=== PATIENT | female | born 1995 | race Caucasian/White ===

== ENCOUNTER 2017-02-28 13:41 | Emergency (ER) | payer MEDICAID ==
[2017-02-28 16:11] LABS: Bacteria,Urine 1+ /HPF (Negative); Bilirubin,Urine NEG (Negative); Blood,Urine MOD (Negative); Ketones,Urine NEG (Negative); Leukocyte Esterase,Urine TR (Negative); Mucus,Urine FEW /HPF; Nitrite,Urine NEG (Negative); Protein,Urine <15 mg/dL mg/dL (Negative); Urobilinogen,Urine < 2.0 mg/dL (<2.0)
--- NOTE | 2017-02-28 16:42 | Emergency Department Report ---
ED Female HPI - General Chief complaint: Urogenital-Female Stated complaint: PELVIC AND FLANK PAIN Time Seen by Provider: 02/28/17 15:49 Source: patient, EMS Mode of arrival: Ambulatory Limitations: No Limitations - History of Present Illness Initial comments: Patient here report in pain to he back area on and off and it started again this morning but she is not having any pain now it was reported in triagepatient was having pelvic pain a 10 out of 10 but patient said she is having cramping in and she has not had having any at present. She also reports back pain and denies any flank pain. He reports that she's been having in pelvic pain that she had Mirena put in 2 years ago and she goes to my [facility] and have been trying to schedule an appointment with the person that The Mirena in but has been unsuccessful. Patient here progressed then ultrasound to check. He denies any vaginal bleeding or discharge. Denies any nausea or vomiting or fever or chills. MD Complaint: pelvic pain, other (Mirena check) Onset/Timin -: year(s) Location: other (lower back pain) Severity: severe Severity scale (0 -10): 7 Quality: aching Consistency: intermittent (lower back pain), now resolved (pelvic pain) Improves with: none Worsens with: none Are you Now?: No Last Menstrual Period: 02/21/17 EDC: 11/28/17 Associated Symptoms: denies: vaginal discharge, vaginal bleeding, abdominal pain , nausea/vomiting, fever/chills, headaches, loss of appetite, dysuria, hematuria , rash, seizure, shortness of breath, syncope, weakness - Related Data Sexually active: Yes Previous Rx's Medication Instructions Recorded Last Taken Type Amoxicillin [Amoxicillin TAB] 875 mg PO BID #14 tablet 08/31/16 Unknown Rx Fluticasone [Flonase] 1 spray NS QDAY #1 bottle 08/31/16 Unknown Rx Ibuprofen [Motrin] 600 mg PO Q8H PRN #15 tablet 08/31/16 Unknown Rx predniSONE [Deltasone] 50 mg PO QDAY #5 tab 08/31/16 Unknown Rx Nitrofurantoin [place]/M-Cryst 100 mg PO Q12HR #14 capsule 02/28/17 Unknown Rx [Macrobid CAP] Allergies Allergy/AdvReac Type Severity Reaction Status Date / Time No Known Allergies Allergy Unverified 10/24/14 02:38 ED Review of Systems ROS: Stated complaint: PELVIC AND FLANK PAIN Other details as noted in HPI Comment: All other systems reviewed and negative Constitutional: denies: chills, fever ENT: denies: throat pain Respiratory: no symptoms reported Cardiovascular: denies: chest pain, palpitations, edema, syncope Gastrointestinal: denies: abdominal pain, nausea, vomiting, diarrhea, constipation Genitourinary: other (requested and Mirena check). denies: urgency, dysuria, frequency, hematuria, discharge, abnormal menses, dyspareunia Musculoskeletal: back pain. denies: arthralgia, myalgia Skin: denies: rash Neurological: denies: headache, weakness, numbness, paresthesias, confusion, abnormal gait, vertigo ED Past Medical Hx - Past Medical History Previous Medical History?: Yes Hx Hypertension: No Hx Congestive Heart Failure: No Hx Diabetes: No Hx Deep Vein Thrombosis: No Hx Renal Disease: No Hx Sickle Cell Disease: No Hx Seizures: No Hx Asthma: No Hx COPD: No Hx HIV: No Additional medical history: Mirena - Surgical History Past Surgical History?: Yes Additional Surgical History: mirena inserted - Family History Family history: no significant - Social History Smoking Status: Current Every Day Smoker Substance Use Type: Non Opiate Pain - Medications Home Medications: Home Medications Medication Instructions Recorded Confirmed Last Taken Type Amoxicillin [Amoxicillin TAB] 875 mg PO BID #14 tablet 08/31/16 Unknown Rx Fluticasone [Flonase] 1 spray NS QDAY #1 bottle 08/31/16 Unknown Rx Ibuprofen [Motrin] 600 mg PO Q8H PRN #15 tablet 08/31/16 Unknown Rx predniSONE [Deltasone] 50 mg PO QDAY #5 tab 08/31/16 Unknown Rx Nitrofurantoin [place]/M-Cryst 100 mg PO Q12HR #14 capsule 02/28/17 Unknown Rx [Macrobid CAP] ED Physical Exam - General Limitations: No Limitations General appearance: alert, in no apparent distress - Head Head exam: Present: atraumatic, normocephalic, normal inspection - Eye Eye exam: Present: normal appearance, PERRL, EOMI. Absent: scleral icterus, conjunctival injection Pupils: Present: normal accommodation - ENT ENT exam: Present: normal exam, normal orophraynx, mucous membranes moist - Neck Neck exam: Present: normal inspection, full ROM. Absent: tenderness, meningismus, lymphadenopathy - Respiratory Respiratory exam: Present: normal lung sounds bilaterally. Absent: respiratory distress, chest wall tenderness - Cardiovascular Cardiovascular Exam: Present: regular rate, normal rhythm, normal heart sounds - GI/Abdominal GI/Abdominal exam: Present: soft, normal bowel sounds. Absent: distended, tenderness, guarding, rebound, rigid - Extremities Exam Extremities exam: Present: normal inspection, full ROM, normal capillary refill. Absent: tenderness, pedal edema, joint swelling, calf tenderness - Back Exam Back exam: Present: normal inspection, full ROM. Absent: tenderness, CVA tenderness (R), CVA tenderness (L), muscle spasm, paraspinal tenderness, vertebral tenderness, rash noted - Neurological Exam Neurological exam: Present: alert, oriented X3, normal gait - Psychiatric Psychiatric exam: Present: normal affect, normal mood - Skin Skin exam: Present: warm, dry, intact, normal color. Absent: rash ED Course Vital Signs 02/28/17 02/28/17 14:06 17:18 Temperature 97.8 F Pulse Rate 68 Respiratory 20 16 Rate Blood Pressure 118/68 O2 Sat by Pulse 100 Oximetry - Reevaluation(s) Reevaluation #1: 02/28/17 17:43 Patient had uneventful ED stay. ED Medical Decision Making - Lab Data Lab Results 02/28/17 Range/Units 15:41 Urine Color Yellow (Yellow) Urine Turbidity Clear (Clear) Urine pH 5.0 (5.0-7.0) Ur Specific [place] 1.023 (1.003-1.030) Urine Protein <15 mg/dl (Negative) mg/dL Urine Glucose (UA) Neg (Negative) mg/dL Urine Ketones Neg (Negative) mg/dL Urine Blood Mod (Negative) Urine Nitrite Neg (Negative) Urine Bilirubin Neg (Negative) Urine Urobilinogen < 2.0 (<2.0) mg/dL Ur Leukocyte Esterase Tr (Negative) Urine WBC (Auto) 5.0 (0.0-6.0) /HPF Urine RBC (Auto) 4.0 (0.0-6.0) /HPF U Epithel Cells (Auto) 10.0 (0-13.0) /HPF Urine Bacteria (Auto) 1+ (Negative) /HPF Hyaline Casts 1 /LPF Urine Mucus Few /HPF Urine HCG, Qual Negative (Negative) Urine culture pending - Medical Decision Making ED course: Discussed with patient that she needs to follow-up at her [facility] for Mirena check. Discussed with her that we can do a pelvic ultrasound and this will tell if her Mirena is displaced. She had initially agreed an ultrasound was ordered. Then came back and said that she does not want the ultrasound she has to go. I discussed with her that she needs to call her [facility] in the morning to schedule an appointment. So discussed with her that she has a urinary tract infection and will be covered with antibiotics. Pt with normal abdominal exam without any vaginal bleeding, she is not having any pelvic pain off and examination. Said pelvic pain comes and goes and it started this morning again but now she is not having any. I discussed with her treatment plan and diagnosis and she is in agreement. Pt also denies any history of kidney stones and I discussed with her that she is not . Discharge home with prescription for Macrobid. Discharged from ER in stable condition. Critical care attestation.: If time is entered above; I have spent that time in minutes in the direct care of this critically ill patient, excluding procedure time. ED Disposition Clinical Impression: Acute cystitis with hematuria, Treatment refusal Disposition: DISCHARGED TO HOME OR SELFCARE Is pt being admited?: No Does the pt Need Aspirin: No Condition: Stable Instructions: Urinary Tract Infection in Women (ED) Additional Instructions: Call [facility] office to schedule appointment tomorrow You refused your ultrasound in ED so, schedule appoint ment with [facility] Take medication as prescribed Prescriptions: Nitrofurantoin [place]/M-Cryst [Macrobid CAP] 100 mg PO Q12HR #14 capsule Referrals: Your, [facility] [Other] - 03/01/17 Forms: Work/School Release Form(ED)
[2017-02-28 18:01] VITALS: BP 123/76
== END 2017-02-28 18:01 | disposition home or self-care (01) ==
LOC: ED 13:41
DX: N30.01 Acute cystitis with hematuria (principal); F17.200 Nicotine dependence, unspecified, uncomplicated
CPT/HCPCS: 81001; 81025; 87086; 99283

== ENCOUNTER 2018-02-12 12:54 | Emergency (ER) | payer MEDICAID ==
[2018-02-12 13:48] VITALS: BP 120/55
[2018-02-12 14:51] LABS: Bacteria,Urine 1+ /HPF (Negative); Bilirubin,Urine NEG (Negative); Blood,Urine NEG (Negative); Color,Urine Yellow (Yellow); Mucus,Urine FEW /HPF; Protein,Urine <15 mg/dL mg/dL (Negative); Urobilinogen,Urine < 2.0 mg/dL (<2.0)
[2018-02-12 15:29] LABS: Basophils % (Auto) 0.2 % (0.0-1.8); Eosinophils # (Auto) 0.2 K/mm3 (0.0-0.4); Eosinophils % (Auto) 1.6 % (0.0-4.3); Hematocrit 37.1 % (30.3-42.9); Hemoglobin 12.1 gm/dl (10.1-14.3); Lymphocytes # (Auto) 3.1 K/mm3 (1.2-5.4); Lymphocytes % (Auto) 23.7 % (13.4-35.0); Mean Corpuscular HGB Conc 33 % (30-34); Mean Corpuscular Hemoglobin 28 pg (28-32); Mean Corpuscular Volume 87 fl (79-97); Monocytes # (Auto) 0.8 K/mm3 (0.0-0.8); Monocytes % (Auto) 6.4 % (0.0-7.3); Platelet Count 267 K/mm3 (140-440); Red Blood Count 4.28 M/mm3 (3.65-5.03); Red Cell Distribution Width 13.4 % (13.2-15.2)
[2018-02-12 15:41] LABS: Calcium 9.2 mg/dL (8.4-10.2); Hemolysis Index 1
[2018-02-12 16:13] LABS: BUN/Creatinine Ratio 15; Blood Urea Nitrogen 6 mg/dL (7-17)
== END 2018-02-12 15:55 | disposition left against medical advice (07) ==
LOC: ED 12:54
DX: R06.02 Shortness of breath (principal); Z53.21 Procedure and treatment not carried out due to patient leaving prior to being seen by health care provider
CPT/HCPCS: 36415; 80048; 81001; 85025; 85379; 93970

== ENCOUNTER 2018-04-04 16:25 | Emergency (ER) | payer SELFPAY ==
[2018-04-04 16:37] VITALS: BP 139/63
[2018-04-04 17:23] LABS: Bilirubin,Urine NEG (Negative); Blood,Urine NEG (Negative); Color,Urine Yellow (Yellow); Mucus,Urine FEW /HPF; Protein,Urine <15 mg/dL mg/dL (Negative)
--- NOTE | 2018-04-04 20:56 | Emergency Department Report ---
HPI - General Chief Complaint: Abdominal Pain Time Seen by Provider: 04/04/18 20:36 - HPI HPI: Room 3 The patient is a 22-year-old female presenting with chief complaint of abdominal pain. The patient states this morning she began having sharp pressure -like pain in the suprapubic region and then began to radiate to the right upper quadrant. The patient states she had dysuria since this morning but denies hematuria. The patient states she is 15 weeks gestational age. Patient states she has not had vaginal bleeding. The patient states she has an appetite and has not eaten because of the pain Location: Abdomen, see above Duration:, Constant since this morning Quality: Sharp/pressure-like Severity: Moderate Modifying factors: [see above] Context: [see above] Mode of transportation: [not driving] ED Past Medical Hx - Surgical History Additional Surgical History: mirena inserted - Family History Family history: no significant - Social History Smoking Status: Never Smoker Substance Use Type: None (denies illicit drug use) - Medications Home Medications: Home Medications Medication Instructions Recorded Confirmed Last Taken Type Amoxicillin [Amoxicillin TAB] 875 mg PO BID #14 tablet 08/31/16 Unknown Rx Fluticasone [Flonase] 1 spray NS QDAY #1 bottle 08/31/16 Unknown Rx Ibuprofen [Motrin] 600 mg PO Q8H PRN #15 tablet 08/31/16 Unknown Rx predniSONE [Deltasone] 50 mg PO QDAY #5 tab 08/31/16 Unknown Rx Nitrofurantoin [place]/M-Cryst 100 mg PO Q12HR #14 capsule 02/28/17 Unknown Rx [Macrobid CAP] Nitrofurantoin Monohyd/M-Cryst 100 mg PO BID #14 capsule 04/05/18 Unknown Rx [Macrobid 100 mg Capsule] ED Review of Systems ROS: Stated complaint: STOMOACH PRESSURE Other details as noted in HPI Constitutional: denies: fever Eyes: denies: eye pain ENT: denies: throat pain Respiratory: denies: other (no pleurisy) Cardiovascular: denies: chest pain Endocrine: unexplained weight loss (15 pounds in one month) Gastrointestinal: abdominal pain, nausea, vomiting Genitourinary: dysuria Musculoskeletal: denies: back pain Neurological: denies: headache Physical Exam - Physical Exam Vital Signs: Vital Signs 04/04/18 04/04/18 16:34 20:16 Temperature 98 F Pulse Rate 102 H 96 H Respiratory 18 Rate Blood Pressure 139/63 O2 Sat by Pulse 98 Oximetry Physical Exam: GENERAL: The patient is well-developed well-nourished female lying on stretcher not appearing to be in acute distress. [] HEENT: Normocephalic. Atraumatic. Extraocular motions are intact. Patient has moist mucous membranes. NECK: Supple. Trachea midline CHEST/LUNGS: Clear to auscultation. There is no respiratory distress noted. HEART/CARDIOVASCULAR: Regular. There is no tachycardia. There is no gallop rub or murmur. ABDOMEN: Abdomen is soft, with diffuse discomfort to palpation. Patient has normal bowel sounds. There is no abdominal distention. SKIN: There is no rash. There is no diaphoresis. NEURO: The patient is awake, alert, and oriented. The patient is cooperative. The patient has normal speech MUSCULOSKELETAL: There is no evidence of acute injury. ED Course Vital Signs 04/04/18 04/04/18 16:34 20:16 Temperature 98 F Pulse Rate 102 H 96 H Respiratory 18 Rate Blood Pressure 139/63 O2 Sat by Pulse 98 Oximetry - Consultations Consultation #1: 04/04/18 22:25 Surgery paged 04/04/18 22:[address] Delgado. Will call back with results/follow-up 04/05/18 00:55 Surgery Paged 04/05/18 01:08 Dr. Delgado updated on negative MRI results ED Medical Decision Making - Lab Data Result diagrams: 04/04/18 20:54 04/04/18 19:29 Laboratory Tests 04/04/18 04/04/18 04/04/18 17:00 19:29 19:29 WBC RBC Hgb Hct MCV MCH MCHC RDW Plt Count Lymph % (Auto) [place] % (Auto) Eos % (Auto) Baso % (Auto) Lymph # [place] # Eos # Baso # Seg Neutrophils % Seg Neutrophils # Sodium 135 L Potassium 4.3 Chloride 97.4 L Carbon Dioxide 21 L Anion Gap 21 BUN 5 L Creatinine 0.4 L Estimated GFR > 60 BUN/Creatinine Ratio 13 Glucose 90 Calcium 9.3 Total Bilirubin 0.40 AST 12 ALT 11 Alkaline Phosphatase 79 Total Protein 6.9 Albumin 3.8 L Albumin/Globulin Ratio 1.2 Lipase 15 HCG, Quant 31706 H Urine Color Yellow Urine Turbidity Clear Urine pH 7.0 Ur Specific [place] 1.025 Urine Protein <15 mg/dl Urine Glucose (UA) Neg Urine Ketones Neg Urine Blood Neg Urine Nitrite Neg Urine Bilirubin Neg Urine Urobilinogen 4.0 Ur Leukocyte Esterase Tr Urine WBC (Auto) 2.0 Urine RBC (Auto) 1.0 U Epithel Cells (Auto) 6.0 Urine Mucus Few 04/04/18 20:54 WBC 15.9 H RBC 4.47 Hgb 12.7 Hct 38.7 MCV 87 MCH 28 MCHC 33 RDW 13.1 L Plt Count 241 Lymph % (Auto) 13.3 L [place] % (Auto) 4.1 Eos % (Auto) 0.5 Baso % (Auto) 0.1 Lymph # 2.1 [place] # 0.6 Eos # 0.1 Baso # 0.0 Seg Neutrophils % 82.0 H Seg Neutrophils # 13.0 H Sodium Potassium Chloride Carbon Dioxide Anion Gap BUN Creatinine Estimated GFR BUN/Creatinine Ratio Glucose Calcium Total Bilirubin AST ALT Alkaline Phosphatase Total Protein Albumin Albumin/Globulin Ratio Lipase HCG, Quant Urine Color Urine Turbidity Urine pH Ur Specific [place] Urine Protein Urine Glucose (UA) Urine Ketones Urine Blood Urine Nitrite Urine Bilirubin Urine Urobilinogen Ur Leukocyte Esterase Urine WBC (Auto) Urine RBC (Auto) U Epithel Cells (Auto) Urine Mucus - Radiology Data Radiology results: report reviewed (right upper quadrant ultrasound, pelvic ultrasound, MRI abdomen, MRI pelvis), image reviewed (right upper Quadrant ultrasound, pelvic ultrasound, MRI abdomen, MRI of pelvis) [address] [address] Ultrasound Report Signed Patient: SANDY ARNOLD MR#: [id number] : 1995 Acct:[id number] Age/Sex: 22 / F ADM Date: 04/04/18 Loc: ED Attending Dr: Ordering Physician: BELL COLEY MD Date of Service: 04/04/18 Procedure(s): US abdomen limited Accession Number(s): [id number] cc: BELL COLEY MD FINAL REPORT PROCEDURE: US ABDOMEN LIMITED TECHNIQUE: Real-time sonography was performed of the right upper quadrant with image documentation. CPT 49194 HISTORY: right upper quadrant pain COMPARISON: No prior studies are available for comparison. FINDINGS: Limited study due to patient's body habitus. Gallbladder is well distended with normal outlines are normal wall thickness without any pericholecystic collections. Mild degree sludge is identified in the dependent portion of gallbladder. Common duct is 5 millimeters in caliber. Right kidney demonstrates normal size and echotexture without calculi or hydronephrosis. It measures 10 x 5 x 6 centimeters. Pancreas is not well visualized due to bowel gas.. IMPRESSION: There is evidence of mild degree sludge in the gallbladder. There is no evidence of cholecystitis. Otherwise unremarkable study. Transcribed By: [facility] [place] Dictated By: THERESE CHA Electronically Authenticated By: THERESE CHA Signed Date/Time: 2143 DD/ 43 TD/TT: 04/04/182143 [facility] [address] [place] [address] Ultrasound Report Signed Patient: SANDY ARNOLD MR#: [id number] : 1995 Acct:[id number] Age/Sex: 22 / F ADM Date: 04/04/18 Loc: ED Attending Dr: Ordering Physician: BELL COLEY MD Date of Service: 04/04/18 Procedure(s): US OB >= 14 wk fetus add gest Accession Number(s): [id number] cc: BELL COLEY MD FINAL REPORT PROCEDURE: US OB gt; = 14 WK FETUS ADD GEST TECHNIQUE: Real-time transabdominal sonography of the uterus, placenta, amniotic fluid, adnexa, and fetus was performed with image documentation. Measurements were obtained to determine age/size. M-mode Doppler was used to document heartbeat. CPT 30897 HISTORY: ABD PAIN AND PREG COMPARISON: No prior studies are available for comparison. FINDINGS: ADDITIONAL GESTATION: None. GENERAL: IUP: Single living intrauterine . Position: Breech Placental position: Anterior with grade 0 maturity, without previa. Amniotic fluid volume: Normal. MATERNAL: Uterus: Within normal limits. Cervical length: 3.1 cm. Internal Os: Closed. FETUS: Heart rate and rhythm: 163 beats per minute, regular. MEASUREMENTS: BPD: 3.25 centimeters corresponding to 16 weeks and 1 day HC: 12.48 centimeters corresponding to 16 weeks and 2 days AC: 10.87 centimeters corresponding to 16 weeks and 5 days FL: 1.97 centimeters corresponding to 15 weeks and 6 days Mean Gestational Age (composite criteria): 16 weeks and 2 days Ratio biometry: Normal. Estimated Weight: 152 grams. Estimated Due Date : 09/17/2018 Incidental note is made of a tubular structure in the right lower quadrant measuring about 13 millimeters in diameter suspicious for a dilated appendix. IMPRESSION: Single intrauterine gestation at 16 weeks and 2 days. Estimated due date: 09/17/2018. Incidental note is made of a tubular structure in the right lower quadrant. Dilated appendix suspicious for appendicitis cannot be excluded. Clinical correlation is recommended. Transcribed By: [facility] Dictated By: THERESE CHA Electronically Authenticated By: THERESE CHA Signed Date/Time: 2212 DD/ 12 TD/TT: 04/04/182212 [facility] [address] [place] [address] Magnetic Resonance Report Signed Patient: SANDY ARNOLD MR#: [id number] : 1995 Acct:[id number] Age/Sex: 22 / F ADM Date: 04/04/18 Loc: ED Attending Dr: Ordering Physician: BELL COLEY MD Date of Service: 04/04 Procedure(s): MR pelvis wo con Accession Number(s): [id number] cc: BELL COLEY MD FINAL REPORT PROCEDURE: MR PELVIS WO CON TECHNIQUE: Magnetic resonance imaging of the pelvis was performed using standard sequences. CPT 49691 HISTORY : right-sided abdominal pain COMPARISON: No prior studies are available for comparison. FINDINGS: Uterus: There is an intrauterine in breech presentation. The placenta is anterior. There is no previa or abruption. Ovaries and adnexae: Normal. Bladder: Normal. Pelvic musculature: Normal. Free fluid: None. Adenopathy or mass: None. Appendix is unremarkable. There is no abscess or adenopathy. IMPRESSION: There is an intrauterine in breech presentation. The placenta is anterior. There is no previa or abruption. Appendix is unremarkable. There is no abscess or adenopathy. Transcribed By: [facility] Dictated By: LYLA ROSA MD Electronically Authenticated By: LYLA ROSA MD Signed Date/Time: 04/05/1844 DD/ TD/TT: 04/16 [facility] [address] [place] [address] Magnetic Resonance Report Signed Patient: SANDY ARNOLD MR#: [id number] : 1995 Acct:[id number] Age/Sex: 22 / F ADM Date: 04/04/18 Loc: ED Attending Dr: Ordering Physician: BELL COLEY MD Date of Service: 04/04 Procedure(s): MR abdomen wo con Accession Number(s): [id number] cc: BELL COLEY MD FINAL REPORT PROCEDURE: MR ABDOMEN WO CON TECHNIQUE: Magnetic resonance imaging of the abdomen was performed using standard pulse sequences without contrast material. HISTORY: right-sided abdominal pain COMPARISON: No prior studies are available for comparison. FINDINGS: Liver: Normal. Biliary system: Normal. Pancreas: Normal. Kidneys/Adrenal glands: Normal. Spleen: Normal. Aorta/ Lymph nodes: Normal. IMPRESSION: Normal Examination Transcribed By: [facility] Dictated By: LYLA ROSA MD Electronically Authenticated By: LYLA ROSA MD Signed Date/Time: 04/05/1842 DD/ TD/TT: 42 - Differential Diagnosis UTI, threatened , round ligament pain, Critical care attestation.: If time is entered above; I have spent that time in minutes in the direct care of this critically ill patient, excluding procedure time. ED Disposition Clinical Impression: Abdominal pain, Dysuria, Disposition: -01 TO HOME OR SELFCARE Is pt being admited?: No Does the pt Need Aspirin: No Condition: Stable Instructions: Abdominal Pain (ED) Additional Instructions: Return to the emergency department immediately should you develop worsening symptoms, fever, inability to tolerate food or liquid or any other concerns. Prescriptions: Nitrofurantoin Monohyd/M-Cryst [Macrobid 100 mg Capsule] 100 mg PO BID #14 capsule Referrals: [facility] [Provider Group] - [place] Time of Disposition: 01:08
[2018-04-04] MEDS ORDERED: TYLENOL PO ONE (21:04)
[2018-04-04 21:05] LABS: Basophils % (Auto) 0.1 % (0.0-1.8); Eosinophils # (Auto) 0.1 K/mm3 (0.0-0.4); Eosinophils % (Auto) 0.5 % (0.0-4.3); Hematocrit 38.7 % (30.3-42.9); Hemoglobin 12.7 gm/dl (10.1-14.3); Lymphocytes # (Auto) 2.1 K/mm3 (1.2-5.4); Lymphocytes % (Auto) 13.3 % (13.4-35.0); Mean Corpuscular HGB Conc 33 % (30-34); Mean Corpuscular Hemoglobin 28 pg (28-32); Mean Corpuscular Volume 87 fl (79-97); Monocytes # (Auto) 0.6 K/mm3 (0.0-0.8); Monocytes % (Auto) 4.1 % (0.0-7.3); Platelet Count 241 K/mm3 (140-440); Red Blood Count 4.47 M/mm3 (3.65-5.03); Red Cell Distribution Width 13.1 % (13.2-15.2)
[2018-04-04 21:18] LABS: Alanine Aminotransferase 11 units/L (7-56); Albumin 3.8 g/dL (3.9-5); BUN/Creatinine Ratio 13; Blood Urea Nitrogen 5 mg/dL (7-17); Calcium 9.3 mg/dL (8.4-10.2); Hemolysis Index 5; Lipase 15 units/L (13-60)
--- NOTE | 2018-04-04 21:49 | Ultrasound Report ---
FINAL REPORT PROCEDURE: US ABDOMEN LIMITED TECHNIQUE: Real-time sonography was performed of the right upper quadrant with image documentation. CPT 17850 HISTORY: right upper quadrant pain COMPARISON: No prior studies are available for comparison. FINDINGS: Limited study due to patient's body habitus. Gallbladder is well distended with normal outlines are normal wall thickness without any pericholecystic collections. Mild degree sludge is identified in the dependent portion of gallbladder. Common duct is 5 millimeters in caliber. Right kidney demonstrates normal size and echotexture without calculi or hydronephrosis. It measures 10 x 5 x 6 centimeters. Pancreas is not well visualized due to bowel gas.. IMPRESSION: There is evidence of mild degree sludge in the gallbladder. There is no evidence of cholecystitis. Otherwise unremarkable study.
--- NOTE | 2018-04-04 22:17 | Ultrasound Report ---
FINAL REPORT PROCEDURE: US OB > = 14 WK FETUS ADD GEST TECHNIQUE: Real-time transabdominal sonography of the uterus, placenta, amniotic fluid, adnexa, and fetus was performed with image documentation. Measurements were obtained to determine age/size. M-mode Doppler was used to document heartbeat. CPT 64514 HISTORY: ABD PAIN AND PREG COMPARISON: No prior studies are available for comparison. FINDINGS: ADDITIONAL GESTATION: None. GENERAL: IUP: Single living intrauterine . Position: Breech Placental position: Anterior with grade 0 maturity, without previa. Amniotic fluid volume: Normal. MATERNAL: Uterus: Within normal limits. Cervical length: 3.1 cm. Internal Os: Closed. FETUS: Heart rate and rhythm: 163 beats per minute, regular. MEASUREMENTS: BPD: 3.25 centimeters corresponding to 16 weeks and 1 day HC: 12.48 centimeters corresponding to 16 weeks and 2 days AC: 10.87 centimeters corresponding to 16 weeks and 5 days FL: 1.97 centimeters corresponding to 15 weeks and 6 days Mean Gestational Age (composite criteria): 16 weeks and 2 days Ratio biometry: Normal. Estimated Weight: 152 grams. Estimated Due Date : 09/17/2018 Incidental note is made of a tubular structure in the right lower quadrant measuring about 13 millimeters in diameter suspicious for a dilated appendix. IMPRESSION: Single intrauterine gestation at 16 weeks and 2 days. Estimated due date: 09/17/2018. Incidental note is made of a tubular structure in the right lower quadrant. Dilated appendix suspicious for appendicitis cannot be excluded. Clinical correlation is recommended.
[2018-04-04] MEDS ORDERED: BENADRYL ONE (23:53)
[2018-04-04] MEDS ORDERED: BENADRYL IV ONE (23:58)
[2018-04-05] MEDS ORDERED: BENADRYL IM ONE (00:11)
--- NOTE | 2018-04-05 00:47 | Magnetic Resonance Report ---
FINAL REPORT PROCEDURE: MR ABDOMEN WO CON TECHNIQUE: Magnetic resonance imaging of the abdomen was performed using standard pulse sequences without contrast material. HISTORY: right-sided abdominal pain COMPARISON: No prior studies are available for comparison. FINDINGS: Liver: Normal. Biliary system: Normal. Pancreas: Normal. Kidneys/Adrenal glands: Normal. Spleen: Normal. Aorta/Lymph nodes: Normal. IMPRESSION: Normal Examination
--- NOTE | 2018-04-05 00:49 | Magnetic Resonance Report ---
FINAL REPORT PROCEDURE: MR PELVIS WO CON TECHNIQUE: Magnetic resonance imaging of the pelvis was performed using standard sequences. CPT 44184 HISTORY: right-sided abdominal pain COMPARISON: No prior studies are available for comparison. FINDINGS: Uterus: There is an intrauterine in breech presentation. The placenta is anterior. There is no previa or abruption. Ovaries and adnexae: Normal. Bladder: Normal. Pelvic musculature: Normal. Free fluid: None. Adenopathy or mass: None. Appendix is unremarkable. There is no abscess or adenopathy. IMPRESSION: There is an intrauterine in breech presentation. The placenta is anterior. There is no previa or abruption. Appendix is unremarkable. There is no abscess or adenopathy.
== END 2018-04-05 01:18 | disposition home or self-care (01) ==
LOC: ED 16:25
DX: O26.892 Other specified pregnancy related conditions, second trimester (principal); R10.30 Lower abdominal pain, unspecified; R30.0 Dysuria; Z3A.16 16 weeks gestation of pregnancy
CPT/HCPCS: 36415; 72195; 74181; 76705; 76805; 80053; 81001; 83690; 84702; 85025; 96372; 99284; J1200; 76810

== ENCOUNTER 2021-06-18 08:34 | Inpatient (IN) | payer MEDICAID ==
[2021-06-18] MEDS ORDERED: MINERAL OIL 30 ML ORAL LIQD PO PRN (10:31)
[2021-06-18] MEDS ORDERED: TERBUTALINE 1 MG/1 ML INJ SUB-Q PRN (10:31)
[2021-06-18] MEDS ORDERED: OXYTOCIN 10 UNIT/1 ML INJ IM PRN (10:31)
[2021-06-18] MEDS ORDERED: METHYLERGONOVINE MALEATE 0.2 MG/ML VIAL IM PRN (10:31)
[2021-06-18] MEDS ORDERED: LOPERAMIDE 2 MG CAP PO PRN (10:31)
[2021-06-18] MEDS ORDERED: ePHEDrine SULFATE 50 MG/1 ML INJ IV PRN ×2 (10:31→11:01)
[2021-06-18] MEDS ORDERED: miSOPROStol 200 MCG TAB PR PRN (10:31)
[2021-06-18] MEDS ORDERED: LIDOCAINE (2%) 20 MG/1 ML VIAL 20 ML MDV INFILTRATI ONE (10:31)
[2021-06-18] MEDS ORDERED: fentaNYL 100 MCG/2 ML INJ IV PRN ×2 (10:31→11:07)
[2021-06-18] MEDS ORDERED: AMPICILLIN/NS 2 GM/100 ML 2 GM/100 ML BAG IV ONE (10:31)
[2021-06-18] MEDS ORDERED: CARBOPROST TROMETHAMINE 250 MCG/1 ML INJ IM PRN (10:31)
[2021-06-18] MEDS ORDERED: BUTORPHANOL 2 MG/1 ML INJ IV PRN ×2 (10:31→11:07)
[2021-06-18] MEDS ORDERED: LACTATED RINGERS 1,000 ML ONE (10:38)
[2021-06-18] MEDS ORDERED: ACETAMINOPHEN W/CODEINE 300-30 MG TAB PO PRN (10:39)
[2021-06-18] MEDS ORDERED: LACTATED RINGERS 1,000 ML IV SCH ×2 (10:45→11:15)
[2021-06-18] MEDS ORDERED: OXYTOCIN DRIP 30 UNITS/500 ML BAG IV SCH ×2 (11:00)
[2021-06-18] MEDS ORDERED: AMPICILLIN/NS 1 GM/50 ML 1 GM/50 ML BAG IV SCH (11:00)
[2021-06-18] MEDS ORDERED: ONDANSETRON 4 MG/2 ML INJ IV PRN ×2 (11:01→14:26)
[2021-06-18] MEDS ORDERED: NALOXONE 2 MG/2 ML INJ IV PRN (11:01)
[2021-06-18] MEDS ORDERED: NalbUPHINE 10 MG/1 ML INJ IV PRN (11:01)
[2021-06-18] MEDS ORDERED: LACTATED RINGERS 250 ML IV SOLN IV ONE (11:01)
[2021-06-18] MEDS ORDERED: diphenhydrAMINE 50 MG/ML VIAL IV PRN (11:01)
[2021-06-18 11:06] LABS: Hematocrit 34.2 % (30.3-42.9); Hemoglobin 11.1 gm/dl (10.1-14.3); Mean Corpuscular HGB Conc 33 % (30-34); Mean Corpuscular Volume 80 fl (79-97); Platelet Count 227 K/mm3 (140-440); Red Blood Count 4.27 M/mm3 (3.65-5.03); Red Cell Distribution Width 14.7 % (13.2-15.2)
[2021-06-18] MEDS ORDERED: ACETAMINOPHEN 325 MG TAB PO PRN ×2 (11:07→14:26)
--- NOTE | 2021-06-18 11:49 | Anesthesia Consultation ---
Anesthesia Consult and Med Hx Date of service: 06/18/21 - Airway Anesthetic Teeth Evaluation: Good ROM Head & Neck: Adequate Mental/Hyoid Distance: Adequate Mallampati Class: Class III Intubation Access Assessment: Possibly Difficult - Pulmonary Exam CTA: Yes - Cardiac Exam Cardiac Exam: RRR - Pre-Operative Health Status ASA Pre-Surgery Classification: ASA2 Proposed Anesthetic Plan: Epidural - Pulmonary Hx Smoking: No Hx Asthma: No COPD: No Hx Pneumonia: No Hx Sleep Apnea: No - Cardiovascular System Hx Hypertension: No Hx Heart Attack/AMI: No Hx Angina: No - Central Nervous System Hx Seizures: No Hx Psychiatric Problems: No - Gastrointestinal Hx Gastroesophageal Reflux Disease: No - Endocrine Hx Renal Disease: No Hx End Stage Renal Disease: No Hx Liver Disease: No Hx Insulin Dependent Diabetes: No Hx Non-Insulin Dependent Diabetes: No Hx Hypothyroidism: No Hx Hyperthyroidism: No - Hematic Hx Anemia: Yes (last ) Hx Sickle Cell Disease: No - Other Systems Hx Alcohol Use: No Hx Obesity: Yes (BMI 37.1)
--- NOTE | 2021-06-18 11:50 | Progress Note ---
Labor Epidural - Labor Epidural Start Time: 11:35 Stop Time: 11:48 Performed by:: KETTY MARIE ([facility] Jose [facility]) Procedure: Patient is requesting epidural for labor and pain. H&P, labs were reviewed. Patient IDed, H&P reviewed, all questions and concerns were answered, and consent was signed. Timeout was performed at bedside. Patient in sitting position. Sterile prep and drape was performed. 3ml of 1% lidocaine skin wheal at L[3]- L [4]. 18-gauge [employer] epidural needle was advanced to loss of resistance with air technique 9cm. Negative CSF negative blood. Epidural catheter advanced to [14] centimeters. [negative] Aspiration [negative] test dose. Sterile dressing applied. Patient tolerated procedure.
[2021-06-18] MEDS ORDERED: fentaNYL-BUPIV 2 MCG/ML-0.125% 200 MCG/100 ML BAG EPIDURAL SCH (12:00)
--- NOTE | 2021-06-18 14:24 | History and Physical Report ---
History of Present Illness Date of examination: 06/18/21 Date of admission: 06/18/21 08:35 Chief complaint: leakage of fluid and uterine contractions History of present illness: 26-year-old G4, P3 at 38+4 weeks who presents with resolved leakage of fluid and regularly contractions. The patient was dilated 4 cm at the time of admission. Her course is complicated by obesity. GBS is positive Past History Past Medical History: other (Obesity) Past Surgical History: no surgical history Social history: - Obstetrical History Expected Date of Delivery: 06/28/21 Actual Gestation: 38 Week(s) 4 Day(s) : 4 Para: 3 Hx # Term Pregnancies: 3 Number of Pregnancies: 0 Spontaneous Abortions: 0 Induced : 0 Number of Living Children: 3 Medications and Allergies Allergies Allergy/AdvReac Type Severity Reaction Status Date / Time No Known Allergies Allergy Verified 04/04/18 16:34 Home Medications Medication Instructions Recorded Confirmed Last Taken Type Famotidine [Pepcid] 20 mg PO DAILY 06/18/21 06/18/21 06/17/21 History No.137/Iron/Folic Acd 1 tab PO DAILY 06/18/21 06/18/21 06/17/21 History [[facility] Tablet] Active Meds: Active Medications Acetaminophen (Acetaminophen 325 Mg Tab) 650 mg PO Q4H PRN PRN Reason: Pain, Mild (1-3) Acetaminophen/Codeine Phosphate (Acetaminophen W/Codeine 300-30 Mg Tab) 1 tab PO Q6H PRN PRN Reason: Pain, Moderate (4-6) Butorphanol Tartrate (Butorphanol 2 Mg/1 Ml Inj) 1 mg IV Q2H PRN PRN Reason: Pain, Moderate(4-6) LABOR PAIN Carboprost Tromethamine (Carboprost Tromethamine 250 Mcg/1 Ml Inj) 250 mcg IM ONCE PRN PRN Reason: Uterine Bleeding Diphenhydramine HCl (Diphenhydramine 50 Mg/Ml Vial) 12.5 mg IV Q2H PRN PRN Reason: Itching Ephedrine Sulfate (Ephedrine Sulfate 50 Mg/1 Ml Inj) 10 mg IV Q2M PRN PRN Reason: Hypotension Fentanyl (Fentanyl 100 Mcg/2 Ml Inj) 100 mcg IV Q2H PRN PRN Reason: Pain,Severe (7-10) LABOR PAIN Oxytocin/Sodium Chloride (Pitocin/Ns 30 Unit/500ml) 30 units in 500 mls @ 2 m ls/hr IV TITR PADMAJA; Protocol Last Titration: 06/18/21 14:05 Dose: 0 mls/hr, 0 mls/hr Documented by: Lactated Ringer's (Lactated Ringers) 1,000 mls @ 125 mls/hr IV DIRECT PADMAJA Last Admin: 06/18/21 10:45 Dose: 125 mls/hr Documented by: Oxytocin/Sodium Chloride (Pitocin/Ns 30 Unit/500ml) 30 units in 500 mls @ 40 mls/hr IV TITR PADMAJA; Protocol Last Admin: 06/18/21 14:05 Dose: 165 mls/hr, 165 mls/hr Documented by: Ampicillin Sodium (Ampicillin/Ns 1 Gm/50 Ml) 1 gm in 50 mls @ 100 mls/hr IV Q4H PADMAJA; Protocol Fentanyl/Bupivacaine/Sodium Chlor (Fentanyl-Bupiv 2 Mcg/Ml-0.125%) 200 mcg in 100 mls @ 12 mls/hr EPIDURAL TITR PADMAJA; Protocol Last Admin: 06/18/21 12:11 Dose: 12 mls/hr Documented by: Loperamide HCl (Loperamide 2 Mg Cap) 2 mg PO ONCE PRN PRN Reason: give with Hemabate Methylergonovine Maleate (Methylergonovine Maleate 0.2 Mg/Ml Vial) 0.2 mg IM ONCE PRN PRN Reason: Uterine Bleeding Mineral Oil (Mineral Oil 30 Ml Oral Liqd) 30 ml PO QHS PRN PRN Reason: Constipation Nalbuphine HCl (Nalbuphine 10 Mg/1 Ml Inj) 2.5 mg IV Q2H PRN PRN Reason: Itching Naloxone HCl (Naloxone 2 Mg/2 Ml Inj) 0.2 mg IV Q5M PRN PRN Reason: Respiratory sedation Ondansetron HCl (Ondansetron 4 Mg/2 Ml Inj) 4 mg IV Q8H PRN PRN Reason: Nausea And Vomiting Oxytocin (Oxytocin 10 Unit/1 Ml Inj) 10 unit IM ONCE PRN PRN Reason: Uterine Bleeding Terbutaline Sulfate (Terbutaline 1 Mg/1 Ml Inj) 0.25 mg SUB-Q ONCE PRN PRN Reason: Hyperstimulation/Hypertonicity Review of Systems All systems: negative Genitourinary: leakage of fluid, contractions - Vital Signs Vital signs: Vital Signs Pulse Pulse Ox 101 H 99 06/18/21 08:54 06/18/21 08:54 Temp Pulse Resp BP Pulse Ox 99.2 F 106 H 18 115/55 100 06/18/21 11:34 06/18/21 14:16 06/18/21 11:34 06/18/21 13:09 06/18/21 14:16 - Physical Exam Cardiovascular: Regular rate Lungs: Positive: Clear to auscultation Abdomen: Positive: normal appearance - Obstetrical Cervical Dilatation: 4 Results Result Diagrams: 06/18/21 10:15 Abnormal lab results 06/18/21 Range/Units 10:15 WBC 18.8 H (4.5-11.0) K/mm3 MCH 26 L (28-32) pg All other labs normal. Assessment and Plan - Patient Problems (1) Active labor at term Current Visit: No Status: Acute Plan to address problem: Admit to labor and delivery
--- NOTE | 2021-06-18 14:25 | Procedure Note ---
OB Delivery Note - Delivery Date of Delivery: 06/18/21 Surgeon: JEANMARIE HAYES Estimated blood loss: other (250 mL) - Vaginal Delivery presentation: vertex Delivery position: OA Intrapartum events: precipitous labor- <3hr Delivery augmentation: pitocin Delivery monitor: external FHT, external uterine Route of delivery: Delivery placenta: spontaneous Episiotomy: none Delivery laceration: none Anesthesia: epidural Delivery comments: The patient progressed to complete complete +2 after epidural. She had a precipitous delivery of a liveborn female with Apgars of 8 and 9 weight 5 pounds 9 ounces. The placenta was delivered by the certified nurse underwear welter incident response analyst. No lacerations were noted. EBL was estimated at 250 mL - Infant A at 1 minute: 8 at 5 minutes: 9 Gender: Female (Weight 5 pounds 9 ounces)
[2021-06-18] MEDS ORDERED: WITCH HAZEL/ GLYCERIN PAD TP PRN (14:26)
[2021-06-18] MEDS ORDERED: LANOLIN/ZINC/DIMETHICONE (LANSINOH) 7 GM TP PRN (14:26)
[2021-06-18] MEDS ORDERED: PROMETHAZINE 25 MG RECT SUPP PR PRN (14:26)
[2021-06-18] MEDS ORDERED: HYDROcodone/ACETAMINOPHEN 5-325 MG TAB PO PRN (14:26)
[2021-06-18] MEDS ORDERED: MAGNESIUM HYDROXIDE (MOM) ORAL LIQD UDC PO PRN (14:26)
[2021-06-18] MEDS ORDERED: PROMETHAZINE 25 MG TAB PO PRN (14:26)
[2021-06-18] MEDS ORDERED: diphenhydrAMINE 25 MG CAP PO PRN (14:26)
[2021-06-18] MEDS: IBUPROFEN 600 MG TAB PO SCH ×2 (14:52→21:36)
[2021-06-18] MEDS: METHYLERGONOVINE 0.2 MG TABLET PO SCH (18:53)
[2021-06-19] MEDS: METHYLERGONOVINE 0.2 MG TABLET PO SCH ×3 (00:04→15:30)
[2021-06-19 01:09] LABS: Hematocrit 27.3 % (30.3-42.9); Hemoglobin 8.9 gm/dl (10.1-14.3)
[2021-06-19] MEDS: IBUPROFEN 600 MG TAB PO SCH ×3 (06:18→23:23)
--- NOTE | 2021-06-19 07:44 | Progress Note ---
Assessment and Plan A: PPD#1 s/p at term with PPH Asymptomatic anemia Obesity P: Routine care Anticipate discharge tomorrow Subjective - Subjective Date of service: 06/19/21 Principal diagnosis: s/p at term, obesity, PPH Interval history: Pt without complaints overnight. Tmax 100.4 at ~ 16:37 pm. Patient reports: appetite normal, voiding normally, pain well controlled, ambulating normally : doing well Objective - Vital Signs Latest vital signs: Vital Signs Temp Pulse Resp BP BP Pulse Ox Pulse Ox 06/19/21 07:11 18 06/19/21 06:18 18 06/19/21 01:14 18 06/19/21 00:45 98.0 F 95 H 20 101/57 99 06/19/21 00:14 18 06/18/21 22:36 18 06/18/21 21:36 18 06/18/21 21:00 100 06/18/21 20:55 98.6 F 101 H 18 128/72 100 06/18/21 17:40 98 06/18/21 16:37 100.4 F H 105 H 18 102/41 98 98 06/18/21 16:11 106 H 99 06/18/21 16:06 97 H 99 06/18/21 16:05 98.9 F 92 H 14 99 06/18/21 16:01 106 H 98 06/18/21 15:56 111 H 99 06/18/21 15:51 113 H 99 06/18/21 15:46 107 H 100 06/18/21 15:41 104 H 99 06/18/21 15:38 107 H 116/64 06/18/21 15:36 111 H 99 06/18/21 15:31 99 H 100 06/18/21 15:26 118 H 100 06/18/21 15:21 99 H 100 06/18/21 15:16 107 H 100 06/18/21 15:11 114 H 100 06/18/21 15:08 110 H 103/52 06/18/21 15:06 99 H 99/52 100 06/18/21 15:01 101 H 100 06/18/21 14:56 98 H 100 06/18/21 14:51 99 H 100 06/18/21 14:46 96 H 100 06/18/21 14:41 93 H 99/55 100 06/18/21 14:36 85 99 06/18/21 14:31 96 H 99 06/18/21 14:26 113 H 99 06/18/21 14:21 101 H 100 06/18/21 14:16 106 H 100 06/18/21 14:11 108 H 99 06/18/21 14:05 98 H 100 06/18/21 14:00 92 H 100 06/18/21 13:55 119 H 100 06/18/21 13:50 120 H 100 06/18/21 13:45 98 H 100 06/18/21 13:40 90 100 06/18/21 13:37 114 H 88 06/18/21 13:35 90 100 06/18/21 13:30 90 99 06/18/21 13:25 93 H 100 06/18/21 13:20 90 100 06/18/21 13:15 91 H 99 06/18/21 13:10 88 100 06/18/21 13:09 95 H 115/55 06/18/21 13:05 91 H 100 06/18/21 13:00 98 H 100 06/18/21 12:55 98 H 100 06/18/21 12:50 98 H 99 06/18/21 12:45 94 H 99 06/18/21 12:40 107 H 100 06/18/21 12:38 99 H 107/58 06/18/21 12:35 101 H 100 06/18/21 12:30 98 H 99 06/18/21 12:25 102 H 100 06/18/21 12:20 111 H 100 06/18/21 12:15 108 H 100 06/18/21 12:10 105 H 100 06/18/21 12:08 97 H 101/55 06/18/21 12:06 105 H 105/54 06/18/21 12:05 108 H 99 06/18/21 12:04 103 H 126/60 06/18/21 12:02 102 H 106/76 06/18/21 12:00 102 H 112/55 100 06/18/21 11:58 100 H 120/60 06/18/21 11:56 103 H 115/59 06/18/21 11:55 102 H 100 06/18/21 11:54 95 H 116/57 06/18/21 11:52 111 H 120/82 06/18/21 11:50 122 H 129/76 100 06/18/21 11:48 110 H 118/64 06/18/21 11:46 102 H 116/60 06/18/21 11:45 110 H 99 06/18/21 11:44 102 H 116/58 06/18/21 11:42 109 H 109/55 06/18/21 11:40 99 H 118/61 100 06/18/21 11:38 112 H 117/65 06/18/21 11:36 101 H 138/94 06/18/21 11:35 107 H 100 06/18/21 11:34 99.2 F 114 H 18 118/57 98 06/18/21 11:30 122 H 97 06/18/21 11:25 102 H 99 06/18/21 11:24 99 H 118/57 06/18/21 11:20 104 H 100 06/18/21 11:15 107 H 99 06/18/21 11:10 108 H 99 06/18/21 11:05 111 H 100 06/18/21 11:00 101 H 99 06/18/21 10:55 97 H 100 06/18/21 10:50 100 H 98 06/18/21 10:36 99 06/18/21 09:59 102 H 100 06/18/21 09:54 98 H 99 06/18/21 09:52 96 H 92 06/18/21 09:49 99 H 98 06/18/21 09:44 104 H 99 06/18/21 09:39 111 H 100 06/18/21 09:34 102 H 99 06/18/21 09:30 99.1 F 06/18/21 09:29 109 H 99 06/18/21 09:24 95 H 100 06/18/21 09:19 96 H 98 06/18/21 09:14 97 H 99 06/18/21 09:09 100 H 99 06/18/21 09:04 103 H 100 06/18/21 08:59 95 H 100 06/18/21 08:55 97 H 118/59 06/18/21 08:54 101 H 99 Intake and Output 06/18/21 06/19/21 06/19/21 22:59 06:59 14:59 Intake Total 240 240 Output Total 1000 300 Balance -760 -60 Intake: Oral 240 240 Output: Urine 1000 300 Self-Catheterization 400 Void 600 300 Other: Total, Intake Amount 120 120 Total, Output Amount 200 300 # Voids Void 1 1 - Exam Breasts: Present: deferred Abdomen: Present: soft (obese ) Uterus: Present: fundal height at umbilicus Extremities: Present: edema (1+ ) - Labs Labs: Abnormal lab results 06/18/21 06/19/21 Range/Units 10:15 00:39 WBC 18.8 H (4.5-11.0) K/mm3 Hgb 8.9 L (10.1-14.3) gm/dl Hct 27.3 L D (30.3-42.9) % MCH 26 L (28-32) pg
--- NOTE | 2021-06-19 07:48 | Discharge Summary ---
Providers - Providers Date of Admission: 06/18/21 08:35 Date of discharge: 06/20/21 Attending physician: JEANMARIE HAYES Primary care physician: JEANMARIE HAYES Hospitalization Reason for admission: rupture of membranes Delivery: Procedure details: Please see delivery note Episiotomy: none Laceration: none Other procedures: none complications: uterine atony Discharge diagnosis: IUP at term delivered [place] baby: female Hospital course: This patient was admitted with rupture of membranes at term and went on to have a spontaneous vaginal delivery which she tolerated well. She did experience uterine atony and hemorrhage after her delivery that was treated with additional IV Pitocin. The remainder of her course was uncomplicated and she met discharge criteria on day #2. She will follow-up in 2 weeks in the office. Condition at discharge: Stable Disposition: 01 HOME / SELF CARE / HOMELESS - Discharge Diagnoses (1) SROM (spontaneous rupture of membranes) Status: Acute (2) Obesity Status: Acute Qualifiers: Obesity classification: adult class 2 (BMI 35 - 39.9) Serious obesity comorbidity presence: unspecified whether serious comorbidity present Body mass index: BMI 38.0-38.9 (3) Acute blood loss anemia Status: Acute (4) Active labor at term Status: Acute (5) Normal spontaneous vaginal delivery Status: Acute Comment: RTO 4 weeks PP care (6) hemorrhage Status: Acute Qualifiers: hemorrhage type: unspecified Qualified Code(s): O72.1 - Other immediate hemorrhage Plan - Discharge Medications Prescriptions: Ferrous Sulfate [Feosol 325 MG tab] 325 mg PO BID #60 tablet Ibuprofen [Motrin] 800 mg PO Q8HR PRN #30 tablet PRN Reason: Pain, Moderate (4-6) HYDROcodone/APAP 5-325 [Gustavus 5/325] 1 each PO Q6HR PRN #10 tablet PRN Reason: Pain - Provider Discharge Summary Activity: routine, no sex for 6 weeks, no heavy lifting 4 weeks, no strenuous exercise Diet: routine Instructions: routine Additional instructions: [] Smoking cessation referral if applicable(refer to patient education folder for contact #) [] Refer to [facility] Booklet Call your doctor immediately for: * Fever > 100.5 * Heavy vaginal bleeding ( >1 pad per hour) * Severe persistent headache * Shortness of breath * Reddened, hot, painful area to leg or breast * Drainage or odor from incision. * Keep incision clean and dry at all times and follow doctor's instructions regarding bathing/showering - Follow up plan Follow up: [facility] SET UP OPERATOR [Advanced Practice Nurse] - 14 Days (Schedule 2 wk appt for bleeding follow up )
--- NOTE | 2021-06-19 09:31 | Post Anesthesia Evaluation ---
- Post Anesthesia Evaluation Patient Participated: Yes Airway Patent: Yes Stable Respiratory Function: Yes Nausea/Vomiting: No Temp > 96.8F: Yes Pain Manageable: Yes Adequeate Hydration: Yes Anesthesia Complications: No Block Receding Appropriately: Yes Patient on Ventilator: No
[2021-06-20] MEDS: IBUPROFEN 600 MG TAB PO SCH (06:12)
[2021-06-20 12:28] VITALS: BP 125/67
== END 2021-06-20 15:00 | disposition home or self-care (01) | DRG 774 ==
LOC: TRG 08:34 → APU 08:34 → LD 08:35 → TRG 11:07 → OB 16:00
PROVIDERS: ADMIT Obstetrics & Gynecology; ATTEND Obstetrics & Gynecology
PROC: 10E0XZZ Delivery of Products of Conception, External Approach (ICD-10-PCS; principal; 2021-06-18)
PROC: 3E0R3BZ Introduction of Anesthetic Agent into Spinal Canal, Percutaneous Approach (ICD-10-PCS; 2021-06-18)
PROC: 00HU33Z Insertion of Infusion Device into Spinal Canal, Percutaneous Approach (ICD-10-PCS; 2021-06-18)
DX: O99.824 Streptococcus B carrier state complicating childbirth (principal); O72.1 Other immediate postpartum hemorrhage; Z37.0 Single live birth; Z3A.38 38 weeks gestation of pregnancy; Z20.822 Contact with and (suspected) exposure to COVID-19; O62.3 Precipitate labor; O99.214 Obesity complicating childbirth; E66.9 Obesity, unspecified; O90.81 Anemia of the puerperium; D62 Acute posthemorrhagic anemia
CPT/HCPCS: 36415; 85014; 85018; 85027; 86592; 86850; 86900; 86901; 96360; G0378; J0290; J2210; J2590; J7120; U0003

== ENCOUNTER 2021-07-11 20:00 | Emergency (ER) | payer MEDICAID ==
[2021-07-11 21:58] LABS: Basophils # (Auto) 0.1 K/mm3 (0.0-0.1); Basophils % (Auto) 0.3 % (0.0-1.8); Eosinophils % (Auto) 0.2 % (0.0-4.3); Hematocrit 23.1 % (30.3-42.9); Hemoglobin 7.3 gm/dl (10.1-14.3); Lymphocytes # (Auto) 2.1 K/mm3 (1.2-5.4); Lymphocytes % (Auto) 11.9 % (13.4-35.0); Mean Corpuscular HGB Conc 31 % (30-34); Mean Corpuscular Volume 77 fl (79-97); Monocytes # (Auto) 0.9 K/mm3 (0.0-0.8); Monocytes % (Auto) 5.1 % (0.0-7.3); Platelet Count 306 K/mm3 (140-440); Red Blood Count 2.99 M/mm3 (3.65-5.03)
[2021-07-11 22:14] LABS: Alanine Aminotransferase 15 units/L (7-56); Blood Urea Nitrogen 14 mg/dL (7-17); Calcium 9.3 mg/dL (8.4-10.2); Hemolysis Index 1
[2021-07-11 22:23] LABS: BUN/Creatinine Ratio 20
--- NOTE | 2021-07-11 23:30 | Emergency Department Report ---
ED General Adult HPI - General Chief complaint: Vaginal Bleeding Stated complaint: BLEEDING FEELING LIGHTHEADED Time Seen by Provider: 07/11/21 21:00 Source: patient Mode of arrival: Ambulatory Limitations: No Limitations - History of Present Illness Initial comments: 26-year-old female presents with complaints of heavy vaginal bleeding today. Patient reports she had a vaginal delivery on 06/18/2021. She reports that she did have heavy vaginal bleeding that required her to remain in the hospital 2 days after her delivery. Patient states she has had persistent mild bleeding since, however the bleeding suddenly worsened upon waking this morning. She states she has used about 5 pads today and went through the first 2 within 2 hours. She admits to some dizziness and fatigue. She also has low mild lower abdominal cramping. No other past medical history per patient. Patient was prescribed iron, but states she has not started taking it - Related Data Home Medications Medication Instructions Recorded Confirmed Last Taken Famotidine [Pepcid] 20 mg PO DAILY 06/18/21 06/18/21 06/17/21 No.137/Iron/Folic Acd 1 tab PO DAILY 06/18/21 06/18/21 06/17/21 [[facility] Tablet] Previous Rx's Medication Instructions Recorded Last Taken Type Ferrous Sulfate [Feosol 325 MG tab] 325 mg PO BID #60 tablet 06/19/21 Unknown Rx HYDROcodone/APAP 5-325 [[place] 1 each PO Q6HR PRN #10 tablet 06/19/21 Unknown Rx 5/325] Ibuprofen [Motrin] 800 mg PO Q8HR PRN #30 tablet 06/19/21 Unknown Rx Methylergonovine [Methergine] 0.2 mg PO Q8HR 2 Days #6 tablet 07/12/21 Unknown Rx Allergies Allergy/AdvReac Type Severity Reaction Status Date / Time No Known Allergies Allergy Verified 04/04/18 16:34 ED Review of Systems ROS: Stated complaint: BLEEDING FEELING LIGHTHEADED Other details as noted in HPI Constitutional: weakness. denies: chills, diaphoresis, fever, malaise Respiratory: denies: cough, shortness of breath Cardiovascular: denies: chest pain Gastrointestinal: abdominal pain. denies: nausea, vomiting, diarrhea, constipation, hematemesis, melena, hematochezia Genitourinary: abnormal menses. denies: urgency, dysuria, frequency, hematuria Musculoskeletal: denies: back pain Skin: denies: change in color Hematological/Lymphatic: denies: easy bleeding, easy bruising ED Past Medical Hx - Past Medical History Previous Medical History?: Yes Hx Hypertension: No Hx Heart Attack/AMI: No Hx Congestive Heart Failure: No Hx Diabetes: No Hx Deep Vein Thrombosis: No Hx Liver Disease: No Hx Renal Disease: No Hx Sickle Cell Disease: No Hx Seizures: No Hx Asthma: No Hx COPD: No Hx HIV: No Additional medical history: Mirena - Surgical History Past Surgical History?: Yes Additional Surgical History: mirena inserted - Social History Smoking Status: Never Smoker Substance Use Type: None - Medications Home Medications: Home Medications Medication Instructions Recorded Confirmed Last Taken Type Famotidine [Pepcid] 20 mg PO DAILY 06/18/21 06/18/21 06/17/21 History No.137/Iron/Folic Acd 1 tab PO DAILY 06/18/21 06/18/21 06/17/21 History [[facility] Tablet] Ferrous Sulfate [Feosol 325 MG tab] 325 mg PO BID #60 tablet 06/19/21 Unknown Rx HYDROcodone/APAP 5-325 [[place] 1 each PO Q6HR PRN #10 tablet 06/19/21 Unknown Rx 5/325] Ibuprofen [Motrin] 800 mg PO Q8HR PRN #30 tablet 06/19/21 Unknown Rx Methylergonovine [Methergine] 0.2 mg PO Q8HR 2 Days #6 tablet 07/12/21 Unknown Rx ED Physical Exam - General Limitations: No Limitations General appearance: alert, in no apparent distress, obese - Head Head exam: Present: atraumatic, normocephalic - Eye Eye exam: Present: normal appearance - Respiratory Respiratory exam: Present: normal lung sounds bilaterally. Absent: respiratory distress - Cardiovascular Cardiovascular Exam: Present: regular rate, normal rhythm. Absent: systolic murmur, diastolic murmur, rubs, gallop - GI/Abdominal GI/Abdominal exam: Present: soft, normal bowel sounds. Absent: distended, guarding, rebound, rigid - Speculum exam: Absent: erythema, vaginal discharge, cervical discharge, foreign body Bi-manual exam: Present: other (Large clot noted at cervical opening; no further active bleeding from the cervix noted). Absent: cervical motion tendernes - Neurological Exam Neurological exam: Present: alert, oriented X3 - Psychiatric Psychiatric exam: Present: normal affect, normal mood - Skin Skin exam: Present: warm, dry, intact, normal color. Absent: rash ED Course Vital Signs 07/11/21 07/12/21 20:47 01:26 Temperature 99.0 F 98.1 F Pulse Rate 91 H 80 Respiratory 16 16 Rate Blood Pressure 101/47 Blood Pressure 132/51 [Right] O2 Sat by Pulse 100 100 Oximetry ED Medical Decision Making - Lab Data Result diagrams: 07/11/21 21:48 07/11/21 21:48 Lab Results 07/11/21 07/11/21 07/11/21 Range/Units 21:48 21:48 23:50 WBC 18.0 H (4.5-11.0) K/mm3 RBC 2.99 L (3.65-5.03) M/mm3 Hgb 7.3 L (10.1-14.3) gm/dl Hct 23.1 L (30.3-42.9) % MCV 77 L (79-97) fl MCH 24 L (28-32) pg MCHC 31 (30-34) % RDW 16.0 H (13.2-15.2) % Plt Count 306 (140-440) K/mm3 Lymph % (Auto) 11.9 L (13.4-35.0) % [place] % (Auto) 5.1 (0.0-7.3) % Eos % (Auto) 0.2 (0.0-4.3) % Baso % (Auto) 0.3 (0.0-1.8) % Lymph # (Auto) 2.1 (1.2-5.4) K/mm3 [place] # (Auto) 0.9 H (0.0-0.8) K/mm3 Eos # (Auto) 0.0 (0.0-0.4) K/mm3 Baso # (Auto) 0.1 (0.0-0.1) K/mm3 Seg Neutrophils % 82.5 H (40.0-70.0) % Seg Neutrophils # 14.9 H (1.8-7.7) K/mm3 Sodium 139 (137-145) mmol/L Potassium 4.4 (3.6-5.0) mmol/L Chloride 103.7 (98-107) mmol/L Carbon Dioxide 24 (22-30) mmol/L Anion Gap 16 mmol/L BUN 14 (7-17) mg/dL Creatinine 0.7 (0.6-1.2) mg/dL Estimated GFR > 60 ml/min BUN/Creatinine Ratio 20 % Glucose 115 H (65-100) mg/dL Calcium 9.3 (8.4-10.2) mg/dL Total Bilirubin < 0.20 (0.1-1.2) mg/dL AST 13 (5-40) units/L ALT 15 (7-56) units/L Alkaline Phosphatase 104 (35-129) units/L Total Protein 7.2 (6.3-8.2) g/dL Albumin 4.0 (3.9-5) g/dL Albumin/Globulin Ratio 1.3 % Urine Color (Yellow) Urine Turbidity (Clear) Urine pH (5.0-7.0) Ur Specific [place] (1.003-1.030) Urine Protein (Negative) mg/dL Urine Glucose (UA) (Negative) mg/dL Urine Ketones (Negative) mg/dL Urine Blood (Negative) Urine Nitrite (Negative) Urine Bilirubin (Negative) Urine Urobilinogen (<2.0) mg/dL Ur Leukocyte Esterase (Negative) Urine WBC (Auto) (0.0-6.0) /HPF Urine RBC (Auto) (0.0-6.0) /HPF U Epithel Cells (Auto) (0-13.0) /HPF Urine Mucus /HPF Blood Type O POSITIVE Antibody Screen Negative 07/12/21 Range/Units 00:48 WBC (4.5-11.0) K/mm3 RBC (3.65-5.03) M/mm3 Hgb (10.1-14.3) gm/dl Hct (30.3-42.9) % MCV (79-97) fl MCH (28-32) pg MCHC (30-34) % RDW (13.2-15.2) % Plt Count (140-440) K/mm3 Lymph % (Auto) (13.4-35.0) % [place] % (Auto) (0.0-7.3) % Eos % (Auto) (0.0-4.3) % Baso % (Auto) (0.0-1.8) % Lymph # (Auto) (1.2-5.4) K/mm3 [place] # (Auto) (0.0-0.8) K/mm3 Eos # (Auto) (0.0-0.4) K/mm3 Baso # (Auto) (0.0-0.1) K/mm3 Seg Neutrophils % (40.0-70.0) % Seg Neutrophils # (1.8-7.7) K/mm3 Sodium (137-145) mmol/L Potassium (3.6-5.0) mmol/L Chloride (98-107) mmol/L Carbon Dioxide (22-30) mmol/L Anion Gap mmol/L BUN (7-17) mg/dL Creatinine (0.6-1.2) mg/dL Estimated GFR ml/min BUN/Creatinine Ratio % Glucose (65-100) mg/dL Calcium (8.4-10.2) mg/dL Total Bilirubin (0.1-1.2) mg/dL AST (5-40) units/L ALT (7-56) units/L Alkaline Phosphatase (35-129) units/L Total Protein (6.3-8.2) g/dL Albumin (3.9-5) g/dL Albumin/Globulin Ratio % Urine Color Yellow (Yellow) Urine Turbidity Slightly-cloudy (Clear) Urine pH 6.0 (5.0-7.0) Ur Specific [place] 1.021 (1.003-1.030) Urine Protein 100 mg/dl (Negative) mg/dL Urine Glucose (UA) Neg (Negative) mg/dL Urine Ketones Neg (Negative) mg/dL Urine Blood Lg (Negative) Urine Nitrite Neg (Negative) Urine Bilirubin Neg (Negative) Urine Urobilinogen < 2.0 (<2.0) mg/dL Ur Leukocyte Esterase Sm (Negative) Urine WBC (Auto) 16.0 H (0.0-6.0) /HPF Urine RBC (Auto) > 182.0 (0.0-6.0) /HPF U Epithel Cells (Auto) 2.0 (0-13.0) /HPF Urine Mucus 1+ /HPF Blood Type Antibody Screen - Radiology Data Radiology results: report reviewed ULTRASOUND PELVIS INDICATION: heavy vaginal bleeding. 2-3 weeks TECHNIQUE: Transabdominal. Duplex Color Doppler used: Yes. COMPARISON: None available FINDINGS: Uterus: Present. Size: 9.1 x 6.1 x 6.3 cm. Endometrial complex: Heterogeneous measuring 17 mm. Mass lesions: None. Additional findings: Moderate echogenic clot seen within cervix Right Ovary --not visualized secondary to bowel gas Left Ovary--not visualized secondary to bowel gas Urinary Bladder: Normal. Free Fluid: None. Additional Findings: None. IMPRESSION: 1. Thickened heterogeneous endometrium within the cervical hemorrhage likely secondary to hemorrhage. No increased color Doppler flow to suggest retained products of conception. - Medical Decision Making 26-year-old female presents with complaints of heavy vaginal bleeding today. Patient reports she had a vaginal delivery on 06/18/2021. She reports that she did have heavy vaginal bleeding that required her to remain in the hospital 2 days after her delivery. Patient states she has had persistent mild bleeding since, however the bleeding suddenly worsened upon waking this morning. She states she has used about 5 pads today and went through the first 2 within 2 hours. She admits to some dizziness and fatigue. She also has low mild lower abdominal cramping. No other past medical history per patient. Patient was prescribed iron, but states she has not started taking it Hemoglobin noted to be 7.3, previously 8.9 on 06/19/2021. Ultrasound shows the following: Thickened heterogeneous endometrium within the cervical hemorrhage likely secondary to hemorrhage. No increased color Doppler flow to suggest retained products of conception. Patient history, vitals, labs, and ultrasound findings discussed with Dr. Gil, patient's [employer] from [facility]. Dr. Gil recommended pelvic exam to assess amount of bleeding; no active bleeding noted on pelvic exam due to clot noted at cervical opening. Part of this clot was removed and still no bleeding occurred. Discussed the exam findings with Dr. Gil who recommends patient follow-up in office within the next few days. She also recommends to place patient on Methergine 0.2 every 8 hours for 6 doses. Discussed plan of care and signs and symptoms that should prompt immediate return to the emergency department in detail patient who verbalized understanding. She is well-appearing, her vitals are within normal limits, she is stable for discharge home. Critical care attestation.: If time is entered above; I have spent that time in minutes in the direct care of this critically ill patient, excluding procedure time. ED Disposition Clinical Impression: Abnormal uterine bleeding Disposition: HOME / SELF CARE / HOMELESS Is pt being admited?: No Condition: Stable Instructions: Hemorrhage Additional Instructions: Please follow-up with your [employer] within the next 2 to 3 days Prescriptions: Methylergonovine [Methergine] 0.2 mg PO Q8HR 2 Days #6 tablet
--- NOTE | 2021-07-11 23:48 | Ultrasound Report ---
ULTRASOUND PELVIS INDICATION: heavy vaginal bleeding. 2-3 weeks TECHNIQUE: Transabdominal. Duplex Color Doppler used: Yes. COMPARISON: None available FINDINGS: Uterus: Present. Size: 9.1 x 6.1 x 6.3 cm. Endometrial complex: Heterogeneous measuring 17 mm. Mass lesions: None. Additional findings: Moderate echogenic clot seen within cervix Right Ovary --not visualized secondary to bowel gas Left Ovary--not visualized secondary to bowel gas Urinary Bladder: Normal. Free Fluid: None. Additional Findings: None. IMPRESSION: 1. Thickened heterogeneous endometrium within the cervical hemorrhage likely secondary to hemorrhage. No increased color Doppler flow to suggest retained products of conception. Signer Name: Simone Cuello MD Signed: 07/11/2021 11:43 PM Workstation Name: [id number]
[2021-07-12 01:02] LABS: Bilirubin,Urine NEG (Negative); Blood,Urine LG (Negative); Color,Urine Yellow (Yellow); Mucus,Urine 1+ /HPF; Urobilinogen,Urine < 2.0 mg/dL (<2.0)
[2021-07-12] MEDS ORDERED: SODIUM CHLORIDE 0.9% 1000 ML 1,000 ML IV ONE (01:02)
[2021-07-12 01:09] LABS: RBC,Urine > 182.0 /HPF (0.0-6.0)
[2021-07-12 01:27] VITALS: BP 132/51
== END 2021-07-12 03:28 | disposition home or self-care (01) ==
LOC: ED 20:00
DX: N93.9 Abnormal uterine and vaginal bleeding, unspecified (principal); Z98.890 Other specified postprocedural states
CPT/HCPCS: 36415; 76856; 80053; 81001; 85025; 86850; 86900; 86901; 87086; 96360; 99284; J7030

== ENCOUNTER 2021-07-14 06:30 | Day surgery (SDC) | payer MEDICAID ==
[2021-07-14] MEDS ORDERED: MIDAZOLAM 2 MG/2 ML INJ IV NR (09:50)
[2021-07-14] MEDS ORDERED: SCOPOLAMINE TRANSDERMAL PATCH 72 HR TD NR (09:50)
[2021-07-14] MEDS ORDERED: METHYLERGONOVINE MALEATE 0.2 MG/ML VIAL IM SCH (10:00)
[2021-07-14] MEDS ORDERED: miSOPROStol 200 MCG TAB PR SCH (10:00)
[2021-07-14] MEDS ORDERED: DOXYCYCLINE HYCLATE 100 MG in SODIUM CHLORIDE 0.9% 250ML 250 ML IV SCH (11:00)
[2021-07-14] MEDS ORDERED: LACTATED RINGERS 1,000 ML IV SCH (12:00)
[2021-07-14] MEDS ORDERED: SILVER NITRATE APPLICATOR 1 EA TP ONE ×2 (12:59→13:55)
[2021-07-14] MEDS ORDERED: METHYLERGONOVINE MALEATE 0.2 MG/ML VIAL IM ONE (13:55)
[2021-07-14] MEDS ORDERED: miSOPROStol 100 MCG TAB PR ONE (13:56)
== END 2021-07-14 06:31 | disposition home or self-care (01) ==
LOC: OR 06:30
PROVIDERS: ATTEND Obstetrics & Gynecology
DX: O73.0 Retained placenta without hemorrhage (principal); Z53.8 Procedure and treatment not carried out for other reasons; E66.01 Morbid (severe) obesity due to excess calories; Z79.899 Other long term (current) drug therapy; Z98.890 Other specified postprocedural states
CPT/HCPCS: J2210